=== PATIENT | female | born 2000 | race Two or more races ===

== ENCOUNTER 2023-12-12 20:31 | Emergency (ER) | payer OTHER, SELFPAY ==
[2023-12-12 20:35] VITALS: BP 128/78; PULSE 82; RESP 16; TEMP 36.8; O2SAT 100; BMI 24.8
--- NOTE | 2023-12-12 20:35 | ED.GENADULT ---
HPI - General Adult General Chief complaint: General Medical Stated complaint: Inner thigh pain Related Data Allergies Allergy/AdvReac Type Severity Reaction Status Date / Time shrimp Allergy Nausea and Verified 12/12/23 20:36 Vomiting PMFSH Social History Social History Advance Directives: No Advance Directives Information Provided: No Physical Exam ED Vital Signs: BMI result Body Mass Index 24.8 Course Course Course Narrative: This is an RME: Additional HPI, ROS, PE not included below will be deferred to primary provider. RME assessment and note performed by: Archana Talley PA-C This is a [id number] who presents to the ER with a complaint of left groin pain x 2 days. Unable to visualize area in triage secondary to limited privacy. She denies chance of . No vaginal discharge or bleeding. Plan: Further physical examination needed Reevaluation(s) Reevaluation #1: Patient left without completing treatment. Discharge Plan Discharge Clinical Impression: Groin pain Patient Disposition: Left W/O Completing Treatment Discharge Date/Time: 12/12/23 23:41
== END 2023-12-12 23:41 | disposition left against medical advice (07) ==
PROVIDERS: Emergency Provider Emergency Medicine
DX: R10.30 Lower abdominal pain, unspecified (principal)
CPT/HCPCS: 99281

== ENCOUNTER 2023-12-14 13:18 | Emergency (ER) | payer OTHER, SELFPAY ==
[2023-12-14 14:05] VITALS: BP 131/79; PULSE 79; RESP 16; TEMP 36.9; O2SAT 99; BMI 24.9
--- NOTE | 2023-12-14 14:05 | ED.ABDPAIN ---
HPI - Abdominal Pain General Chief Complaint: Urogenital-Female Stated Complaint: Abd pain Related Data Allergies Allergy/AdvReac Type Severity Reaction Status Date / Time shrimp Allergy Nausea and Verified 12/14/23 14:07 Vomiting PMFSH Social History Social History Advance Directives: No Advance Directives Information Provided: No Do you have a plan to hurt others: No Plan Physical Exam ED Vital Signs: Vital Signs - 24 hr 12/14/23 14:05 Temperature 98.4 F Pulse Rate 79 Respiratory Rate 16 Blood Pressure 131/79 Pulse Oximetry 99 Oxygen Delivery Method Room Air BMI result Body Mass Index 24.9 Course Course Course Narrative: This is a Rapid Medical Examination (RME) performed by Balbina Pearson PA-C in triage. Full HPI, ROS, assessment and treatment plan per primary provider in the Main ED. 23 yo female presents to the ER for evaluation of left inguinal pain and painful bumps for the last 5 days. bumps are worsening. no vaginal discharge or bleeding. no urinary symptoms. seen here on 12/11 but left before completing treatment. on examination she is awake, alert, no distress. normal speech and cognition. no respiratory distress. her abdomen in soft, nontender. left inguinal tenderness without palpable masses. Plan: full skin/gu exam in [facility] Discharge Plan Discharge Clinical Impression: Groin pain Qualifiers: Laterality: left Qualified Code(s): R10.32 - Left lower quadrant pain Patient Disposition: Left W/O Completing Treatment Discharge Date/Time: 12/14/23 16:34
== END 2023-12-14 16:34 | disposition left against medical advice (07) ==
LOC: HO.ED 16:17
PROVIDERS: Emergency Provider Emergency Medicine
DX: R10.30 Lower abdominal pain, unspecified (principal); Z53.21 Procedure and treatment not carried out due to patient leaving prior to being seen by health care provider
CPT/HCPCS: 99281